=== PATIENT | male | born 1995 | race Native Hawaiian/Other Pacific Islander ===

== ENCOUNTER 2022-11-20 14:22 | Emergency (ER) | payer OTHER ==
[~2022-11-20] VITALS: Ht 177.8 cm; Wt 99.8 kg
[2022-11-20 14:25] VITALS: BP 148/87; TEMP 98.4
== END 2022-11-20 14:59 | disposition home or self-care (01) ==
LOC: ED 14:22
DX: S43.491A Other sprain of right shoulder joint, initial encounter (principal); Y93.75 Activity, martial arts; X58.XXXA Exposure to other specified factors, initial encounter; Y92.89 Other specified places as the place of occurrence of the external cause
CPT/HCPCS: 99281